=== PATIENT | female | born 1990 | race Two or more races ===

== ENCOUNTER 2017-01-24 21:19 | Emergency (ER) | payer MEDICAID ==
[~2017-01-24] VITALS: Ht 154.9 cm; Wt 120.0 kg
[2017-01-24 21:22] VITALS: BP 126/76
[2017-01-24] MEDS ORDERED: KETOROLAC 30 MG/1 ML ONE (21:56)
[2017-01-24] MEDS ORDERED: KETOROLAC 30 MG/1 ML IM ONE (22:00)
== END 2017-01-24 23:10 | disposition home or self-care (01) ==
LOC: ED 23:04
DX: S80.12XA Contusion of left lower leg, initial encounter (principal); S93.602A Unspecified sprain of left foot, initial encounter; S93.402A Sprain of unspecified ligament of left ankle, initial encounter; W01.0XXA Fall on same level from slipping, tripping and stumbling without subsequent striking against object, initial encounter; Y93.89 Activity, other specified; Y92.89 Other specified places as the place of occurrence of the external cause; Y99.8 Other external cause status
CPT/HCPCS: 73110; 73590; 73610; 73630; 96372; 99284; J1885